=== PATIENT | male | born 1990 | race African-American/Black ===

== ENCOUNTER 2016-10-10 03:46 | Observation (INO) | payer MEDICAID, OTHER ==
[~2016-10-10] VITALS: Ht 172.7 cm; Wt 55.6 kg
[~2016-10-10 03:46] MED LIST: ARIP30TA PO; CITA20TA9 PO; DIPH25CA61 PO; LAMO25TA5 PO; OLAN10TA3 PO
[2016-10-10 04:16] LABS: DAU SCREEN DISCLAIMER
[2016-10-10] MEDS ORDERED: ARIP10TA13 PO (04:21)
[2016-10-10] MEDS ORDERED: DIPH25CA61 PO (04:21)
[2016-10-10] MEDS ORDERED: CITA10TA8 PO (04:21)
[2016-10-10 04:27] LABS: HEMATOCRIT 44.8 % (39.2-51.8); HEMOGLOBIN 14.5 g/dL (13.7-18.0); WHITE BLOOD COUNT 4.7 x10^3/uL (3.4-10)
[2016-10-10 04:39] LABS: BLOOD UREA NITROGEN 7 mg/dL (7-18)
[2016-10-10 04:40] LABS: ACETAMINOPHEN < 2 mcg/mL (10-30)
[2016-10-10 04:54] LABS: DIFF TOTAL CELLS COUNTED 100 CELL DIFF
[2016-10-10 04:58] LABS: VERIFY COUNTS? YES
[2016-10-10] MEDS ORDERED: ALUMINUM/MAG/SIMETHICONE 30 ML UDC PO PRN (11:00)
[2016-10-10] MEDS ORDERED: POLYETHYLENE GLYCOL 17 GM PACKET PO PRN (11:00)
[2016-10-10] MEDS ORDERED: BISACODYL 10 MG SUPP PR PRN (11:00)
[2016-10-10] MEDS ORDERED: ACETAMINOPHEN 325 MG TABLET PO PRN (11:00)
[2016-10-10] MEDS ORDERED: CALCIUM CARBONATE 500 MG TAB.CHEW PO PRN (11:00)
[2016-10-10 11:05] VITALS: BP 130/78
[2016-10-10] MEDS: SENNA/DOCUSATE TABLET PO SCH (12:01)
[2016-10-10] MEDS: LAMOTRIGINE 25 MG TABLET PO SCH ×2 (12:01→20:35)
[2016-10-10] MEDS: CITALOPRAM 10 MG TABLET PO SCH (12:01)
[2016-10-10] MEDS: ONDANSETRON ODT 4 MG PO PRN ×2 (15:26→19:26)
[2016-10-10 19:46] VITALS: BP 124/78
[2016-10-10] MEDS ORDERED: PROMETHAZINE 25 MG/ML, 1ML IM PRN (20:00)
[2016-10-10] MEDS: OLANZAPINE 2.5 MG TABLET PO SCH (20:35)
[2016-10-10] MEDS: FAMOTIDINE 20 MG TABLET PO SCH (20:36)
[2016-10-11 05:22] LABS: BLOOD UREA NITROGEN 7 mg/dL (7-18)
[2016-10-11 06:19] LABS: HEMATOCRIT 44.7 % (39.2-51.8); HEMOGLOBIN 14.7 g/dL (13.7-18.0); WHITE BLOOD COUNT 3.5 x10^3/uL (3.4-10)
[2016-10-11 06:41] LABS: DIFF TOTAL CELLS COUNTED 100 CELL DIFF
[2016-10-11 06:45] LABS: VERIFY COUNTS? YES
[2016-10-11 06:46] LABS: ANISOCYTOSIS 1+
[2016-10-11 07:26] VITALS: BP 101/66
[2016-10-11] MEDS: CITALOPRAM 10 MG TABLET PO SCH (09:05)
[2016-10-11] MEDS: ONDANSETRON ODT 4 MG PO PRN (09:05)
[2016-10-11] MEDS: SENNA/DOCUSATE TABLET PO SCH (09:05)
[2016-10-11] MEDS: LAMOTRIGINE 25 MG TABLET PO SCH (11:04)
[2016-10-11 20:00] VITALS: BP 102/64
[2016-10-11] MEDS: FAMOTIDINE 20 MG TABLET PO SCH (21:15)
[2016-10-11] MEDS: LAMOTRIGINE 100 MG TABLET PO SCH (21:15)
[2016-10-11] MEDS: OLANZAPINE 2.5 MG TABLET PO SCH (21:15)
[2016-10-12 08:00] VITALS: BP 123/71
[2016-10-12] MEDS: CITALOPRAM 10 MG TABLET PO SCH (08:31)
[2016-10-12] MEDS: LAMOTRIGINE 100 MG TABLET PO SCH ×2 (08:31→20:53)
[2016-10-12] MEDS: SENNA/DOCUSATE TABLET PO SCH (08:32)
[2016-10-12 19:35] VITALS: BP 105/71
[2016-10-12] MEDS: OLANZAPINE 2.5 MG TABLET PO SCH (20:53)
[2016-10-12] MEDS: FAMOTIDINE 20 MG TABLET PO SCH (20:53)
[2016-10-13] MEDS: SENNA/DOCUSATE TABLET PO SCH (08:25)
[2016-10-13] MEDS: LAMOTRIGINE 100 MG TABLET PO SCH ×2 (08:25→21:32)
[2016-10-13] MEDS: CITALOPRAM 10 MG TABLET PO SCH (08:26)
[2016-10-13 08:45] VITALS: BP 110/69
[2016-10-13 19:39] VITALS: BP 117/69
[2016-10-13] MEDS ORDERED: DIPHENHYDRAMINE 25 MG CAPSULE PO PRN (20:30)
[2016-10-13] MEDS: FAMOTIDINE 20 MG TABLET PO SCH (21:32)
[2016-10-13] MEDS: OLANZAPINE 2.5 MG TABLET PO SCH (21:33)
[2016-10-14 08:00] VITALS: BP 132/78
[2016-10-14] MEDS: CITALOPRAM 10 MG TABLET PO SCH (08:50)
[2016-10-14] MEDS: LAMOTRIGINE 100 MG TABLET PO SCH (08:50)
[2016-10-14] MEDS: SENNA/DOCUSATE TABLET PO SCH (08:51)
[2016-10-14] MEDS ORDERED: LAMO100T5 PO (12:29)
[2016-10-14] MEDS ORDERED: OLAN2.5T5 PO (12:29)
[2016-10-14] MEDS ORDERED: CITA40TA12 PO (12:35)
== END 2016-10-14 13:10 | disposition home or self-care (01) ==
LOC: ED 05:53 → INTOOBSV 09:39 → EDIP 09:39 → 3E 11:00
PROVIDERS: ADMIT Internal Medicine; ATTEND Internal Medicine
DX: R45.851 Suicidal ideations (principal); F31.9 Bipolar disorder, unspecified; F41.1 Generalized anxiety disorder; F43.10 Post-traumatic stress disorder, unspecified; G40.909 Epilepsy, unspecified, not intractable, without status epilepticus; K21.9 Gastro-esophageal reflux disease without esophagitis; D72.820 Lymphocytosis (symptomatic); Z91.14 Patient's other noncompliance with medication regimen; Z79.899 Other long term (current) drug therapy; Z87.891 Personal history of nicotine dependence
CPT/HCPCS: 36415; 80048; 80307; 80329; 81001; 82040; 82330; 85025; 87086; 96372; 99285; G0378; J2550; Q0162; Q0163; G0480

== ENCOUNTER 2016-11-02 01:48 | Emergency (ER) | payer OTHER ==
[~2016-11-02] VITALS: Ht 172.7 cm; Wt 56.8 kg
[~2016-11-02 01:48] MED LIST changes: +ARIP10TA33 PO; -ARIP30TA PO; +ARIP30TA4 PO; +CITA10TA8 PO; +CITA40TA12 PO; +LAMO100T5 PO; +OLAN2.5T10 PO
[2016-11-02 01:50] VITALS: BP 104/70
[2016-11-02] MEDS ORDERED: IBUPROFEN 200 MG TABLET ONE (02:47)
[2016-11-02] MEDS ORDERED: ACETAMINOPHEN 325 MG TABLET ONE (02:47)
[2016-11-02] MEDS ORDERED: IBUPROFEN 200 MG TABLET PO ONE (03:00)
[2016-11-02] MEDS ORDERED: ACETAMINOPHEN 325 MG TABLET PO ONE (03:00)
[2016-11-02] MEDS ORDERED: OLAN20TA3 PO (03:37)
== END 2016-11-02 03:42 | disposition home or self-care (01) ==
LOC: ED 03:36
DX: S41.111D Laceration without foreign body of right upper arm, subsequent encounter (principal); F17.200 Nicotine dependence, unspecified, uncomplicated; Z88.0 Allergy status to penicillin
CPT/HCPCS: 99283

== ENCOUNTER 2018-06-06 21:43 | Emergency (ER) | payer MEDICAID, OTHER ==
[~2018-06-06] VITALS: Ht 172.7 cm; Wt 67.6 kg
[~2018-06-06 21:43] MED LIST changes: +OLAN20TA3 PO
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
[2018-06-06 22:50] LABS: MEAN CORPUSCULAR HEMOGLOBIN 31.9 pg (27.5-34.5); MEAN CORPUSCULAR HGB CONC 34.1 g/dL (33.2-36.2); MEAN CORPUSCULAR VOLUME 93.5 fL (81-97); MEAN PLATELET VOLUME 7.8 fL (7.4-10.4); PLATELET COUNT 244 x10^3/uL (130-400); RED BLOOD COUNT 4.68 x10^6/uL (4.38-5.82); RED CELL DISTRIBUTION WIDTH 13.9 % (9.4-14.8)
[2018-06-06 22:58] LABS: ALANINE AMINOTRANSFERASE 31 U/L (12-78); ALBUMIN 4.1 g/dL (3.4-5.0); ANION GAP 4 mmol/L (5-15); CALCIUM 8.6 mg/dL (8.5-10.1); CHLORIDE 106 mmol/L (98-107); CREATININE 1.15 mg/dL (0.7-1.3)
[2018-06-06 23:01] LABS: ALKALINE PHOSPHATASE 80 U/L (45-117); BILIRUBIN,TOTAL 0.7 mg/dL (0.2-1.0); TOTAL PROTEIN 8.1 g/dL (6.4-8.2)
[2018-06-06 23:05] LABS: ACETAMINOPHEN < 2 mcg/mL (10-30); SALICYLATE LEVEL < 1.7 mg/dL (2.8-20.0)
[2018-06-06 23:18] LABS: BASOPHILS # (AUTO) 0.08 x10^3/uL (0-0.1); BASOPHILS % (AUTO) 2 % (0-1); EOSINOPHILS # (AUTO) 0.04 x10^3/uL (0-0.4); EOSINOPHILS % (AUTO) 1 % (1-7); LYMPHOCYTES % (AUTO) 39 % (22-44); MD SCAN; MONOCYTES # (AUTO) 0.54 x10^3/uL (0.2-0.8); MONOCYTES % (AUTO) 12 % (2-9); NEUTROPHILS # (AUTO) 2.05 x10^3/uL (1.8-6.8); NEUTROPHILS % (AUTO) 47 % (42-75)
--- NOTE | 2018-06-06 23:30 | NUR ---
PT SLEEPING WITH TV ON. SITTER AT BEDSIDE.
--- NOTE | 2018-06-07 00:01 | NUR ---
TELEPSYCH PAGED AT THIS TIME.
[2018-06-07 00:25] LABS: AMPHETAMINE SCREEN, URINE Negative (Negative); BARBITURATE SCREEN, URINE Negative (Negative); BENZODIAZEPINE SCREEN, URINE Negative (Negative); CANNABINOID SCREEN, URINE Positive (Negative); COCAINE SCREEN, URINE Negative (Negative); METHADONE SCREEN, URINE Negative (Negative); OPIATE SCREEN, URINE Negative (Negative)
[2018-06-07] MEDS ORDERED: ELVI1TAB2 PO (00:30)
[2018-06-07] MEDS ORDERED: FLUO40CA2 PO (00:30)
--- NOTE | 2018-06-07 01:17 | NUR ---
PT SLEEPING AT THIS TIME. VSS. SITTER AT BEDSIDE.
--- NOTE | 2018-06-07 01:45 | NUR ---
UPDATE GIVEN TO TELEPSYCH PHYSICIAN.
--- NOTE | 2018-06-07 02:03 | NUR ---
PT HAS BEEN CLEARED FOR DC BY TELEPSYCH. HAS SPOKE WITH PT AND PT IS AGREEABLE TO TAXI VOUCHER TO DROP IN CUSTODIAL
[2018-06-07 02:13] VITALS: BP 119/74
== END 2018-06-07 02:15 | disposition home or self-care (01) ==
LOC: ED 22:57
DX: F32.1 Major depressive disorder, single episode, moderate (principal); F43.10 Post-traumatic stress disorder, unspecified; G40.909 Epilepsy, unspecified, not intractable, without status epilepticus; F41.1 Generalized anxiety disorder; Z21 Asymptomatic human immunodeficiency virus [HIV] infection status
CPT/HCPCS: 36415; 80053; 80307; 80329; 85025; 99284; G0480